=== PATIENT | female | born 1995 | race Caucasian/White ===

== ENCOUNTER 2020-11-16 21:07 | Outpatient (CLI) | payer OTHER | END 2020-11-16 22:37 | disposition home or self-care (01) | LOC: GENOP 21:07 | PROVIDERS: Obstetrics & Gynecology | DX: O99.891 Other specified diseases and conditions complicating pregnancy (principal); R10.9 Unspecified abdominal pain; O26.853 Spotting complicating pregnancy, third trimester; O34.83 Maternal care for other abnormalities of pelvic organs, third trimester; N83.209 Unspecified ovarian cyst, unspecified side; O99.323 Drug use complicating pregnancy, third trimester; F11.10 Opioid abuse, uncomplicated; F19.10 Other psychoactive substance abuse, uncomplicated; O99.343 Other mental disorders complicating pregnancy, third trimester; F41.9 Anxiety disorder, unspecified; F32.9 Major depressive disorder, single episode, unspecified; Z79.899 Other long term (current) drug therapy; Z3A.30 30 weeks gestation of pregnancy | CPT/HCPCS: 80307; 81001; G0463 ==

== ENCOUNTER 2021-01-07 03:42 | Inpatient (IN) | payer OTHER ==
[2021-01-07 04:48] LABS: HEMOGLOBIN 11.1 gm/dl (12.3-15.3); RED BLOOD COUNT 3.38 M/UL (4.00-5.10); WHITE BLOOD COUNT 17.3 K/UL (4.5-11.0)
[2021-01-07] MEDS ORDERED: IBUPROFEN800 MG PO (12:20)
[2021-01-07] MEDS ORDERED: DOCUSATE SODIU100 MG PO (12:20)
[2021-01-08 06:29] LABS: HEMOGLOBIN 10.1 gm/dl (12.3-15.3)
[2021-01-09] MEDS ORDERED: VALTREX 500 MG500 MG PO (16:54)
== END 2021-01-09 15:59 | disposition home or self-care (01) | DRG 807 ==
LOC: GENOP 03:42 → OB 03:45
PROVIDERS: ADMIT Obstetrics & Gynecology
PROC: 10E0XZZ Delivery of Products of Conception, External Approach (ICD-10-PCS; principal; 2021-01-07)
DX: O62.2 Other uterine inertia (principal); Z37.0 Single live birth; O99.344 Other mental disorders complicating childbirth; F41.9 Anxiety disorder, unspecified; F32.9 Major depressive disorder, single episode, unspecified; Z20.822 Contact with and (suspected) exposure to COVID-19; Z3A.37 37 weeks gestation of pregnancy
CPT/HCPCS: 36415; 80307; 85014; 85018; 85025; 86900; 86901; 90471; 90715; J2590; U0002